=== PATIENT | male | born 1950 | race Caucasian/White ===

== ENCOUNTER 2022-02-03 12:55 | Emergency (ER) | payer OTHER ==
--- NOTE | 2022-02-03 13:56 | RAD REPORT ---
EXAM DESCRIPTION: RAD - Wrist Left 3 View - 02/03/2022 1:33 pm CLINICAL HISTORY: crush injury COMPARISON: No comparisons FINDINGS: No fracture is identified. There is no dislocation or periosteal reaction noted. Significa nt degenerative changes are present at the trapezium first metacarpal articulation. History indicates laceration 1 the 2 inches above the wrist. There is soft tissue thickening over the dorsum of the distal forearm approximately 7 cm from the radiocarpal joint space. Soft tissue of the distal forearm are not fully imaged. Within the field of view no foreign body is seen. IMPRESSION: No acute bone or joint finding identifiable. Thickened soft tissues over the dorsum of the distal forearm, only partially visualized, with no fore ign body identified.
--- NOTE | 2022-02-03 14:27 | RAD REPORT ---
EXAM DESCRIPTION: RAD - Forearm Left - 02/03/2022 2:16 pm CLINICAL HISTORY: trauma, swelling COMPARISON: None. FINDINGS: No fracture is identified. There is no dislocation or periosteal reaction noted. Soft tissue injury is present over the dorsal aspect of the distal forearm. No foreign body seen in t his region. Punctate hyperdensity mid forearm is possibly film artifact. This punctate hyperdensities not believed be part of an acute injury. IMPRESSION: Negative left forearm examination for acute bone finding. Dorsal forearm soft tissue injury with no acutely retained foreign body confirmed.
[2022-02-03 14:53] LABS: Absolute Lymphocytes (CBC) 1.3 K/uL (0.7-4.9); Hematocrit 49.1 % (39.6-49.0); Lymphocytes % 11.7 % (15.3-44.8); MCV 88.3 fL (80-100); RBC Red Blood Cell Count 5.56 M/uL (4.33-5.43)
[2022-02-03 15:17] LABS: Potassium 4.1 mmol/L (3.5-5.1); Troponin High Sensitivity 4.1 pg/mL (<58.9)
[2022-02-03] MEDS ORDERED: LIDOCAINE 1% W/EPI 1:100,000 MDV 20 ML VIAL ONE (17:23)
--- NOTE | 2022-02-03 17:48 | EDPHYS ---
Physician Documentation [facility] Name: Junito Bahena Age: 71 yrs Sex: Male : 1950 Arrival Date: 02/03/2022 Time: 12:59 Bed 17 Private MD: ED Physician Davidson Carter HPI: 02/03 13:20 This 71 yrs old Male presents to ER via Unassigned with complaints of Arm Injury, Hand jmm Injury, Passed Out Prior To Arrival. 13:20 The patient or guardian complains of injury, pain. Onset: The symptoms/episode jmm began/occurred acutely, just prior to arrival. Modifying factors: The symptoms are alleviated by nothing. the symptoms are aggravated by lifting weight. This is a 71 year old malewtih a history of hlp that presents to the ED wth complaints of left forearm pain and difficulty extending his left 3rd and 4th finger. states the patient had a syncopal episodes after the injury. Patient is UTD on tetanus immunizations. . Historical: - Allergies: 13:20 No Known Allergies; ap3 - PMHx: 13:20 Hypothyroidism; Hypercholesterolemia; ap3 - Immunization history:: Client reports receiving the 2nd dose of the Covid vaccine. - Social history:: Smoking status: Patient denies any tobacco usage or history of. Patient uses alcohol, occasionally. ROS: 13:20 Constitutional: Negative for fever, chills, and weight loss, Cardiovascular: Negative jmm for chest pain, palpitations, and edema, Respiratory: Negative for shortness of breath, cough, wheezing, and pleuritic chest pain. 13:20 MS/extremity: Positive for injury or acute deformity, laceration. 13:20 Neuro: Positive for syncope. 13:20 All other systems are negative. Exam: 13:20 Constitutional: This is a well developed, well nourished patient who is awake, alert, jmm and in no acute distress. Head/Face: atraumatic. Eyes: EOMI, no conjunctival erythema appreciated ENT: Moist Mucus Membranes Neck: Trachea midline, Supple Chest/axilla: Normal chest wall appearance and motion. Cardiovascular: Regular rate and rhythm. No edema appreciated Respiratory: Normal respirations, no respiratory distress appreciated Abdomen/GI: Non distended Back: Normal ROM 13:20 Skin: abrasion noted to the left distal forearm. 13:20 Neuro: Orientation: is normal, Mentation: is normal, Memory: is normal. 13:23 Musculoskeletal/extremity: [facility] Vital Signs: 13:16 BP 148 / 88; Pulse 62; Resp 16; Temp 97.3; Pulse Ox 100% ; Weight 97.52 kg; Height 6 ap3 ft. 1 in. (185.42 cm); 14:58 BP 155 / 71; Pulse 55; Resp 18; Pulse Ox 100% on R/A; ph 16:27 BP 146 / 75; Pulse 57; Resp 18; Pulse Ox 100% on R/A; ph 13:16 Body Mass Index 28.37 (97.52 kg, 185.42 cm) ap3 Laceration: 17:46 Wound Repair of 2cm ( 0.8in ) subcutaneous laceration to left arm. Distal jmm neuro/vascular/tendon intact. Anesthesia: Local anesthetic administered with 5 mls of 1% lidocaine w/ Epi. Wound prep: Simple cleansing with betadine by me. Skin closed with 3 4-0 Prolene using simple sutures and sterile technique. Patient tolerated well. MDM: 13:48 Patient medically screened. [facility] 17:47 Data reviewed: vital signs, nurses notes. Counseling: I had a detailed discussion with [facility] the patient and/or guardian regarding: the historical points, exam findings, and any diagnostic results supporting the discharge/admit diagnosis, lab results, radiology results, the need for outpatient follow up, to return to the emergency department if symptoms worsen or persist or if there are any questions or concerns that arise at home. 02/03 13:17 Order name: Basic Metabolic Panel; Complete Time: 15:21 [facility] 02/03 13:17 Order name: CBC with Diff; Complete Time: 14:56 [facility] 02/03 13:17 Order name: Troponin HS; Complete Time: 15:21 [facility] 02/03 13:17 Order name: Wrist Left (3 View) XRAY; Complete Time: 13:57 [facility] 02/03 13:58 Order name: Forearm Left XRAY; Complete Time: 14:30 [facility] 02/03 13:17 Order name: EKG; Complete Time: 13:17 [facility] 02/03 13:17 Order name: Cardiac monitoring; Complete Time: 14:27 [facility] 02/03 13:17 Order name: EKG - Nurse/Tech; Complete Time: 14:27 [facility] 02/03 13:17 Order name: IV Saline Lock; Complete Time: 14:47 [facility] 02/03 13:17 Order name: Labs collected and sent; Complete Time: 14:47 [facility] 02/03 13:17 Order name: O2 Per Protocol; Complete Time: 14:26 [facility] 02/03 13:17 Order name: O2 Sat Monitoring; Complete Time: 14:26 [facility] Administered Medications: 17:50 Drug: Lidocaine (1 %) 20 ml Volume: 20 ml; Route: Infiltration; ph Disposition: 02/04 07:31 Co-signature as Attending Physician, Davidson Carter MD. rn Disposition Summary: 02/03/22 17:48 Discharge Ordered Location: Home [facility] Condition: Stable [facility] Diagnosis - Forearm Laceration jmm - Syncope [facility] Followup: [facility] - With: Anthony Bain MD - When: 2 - 3 days - Reason: Recheck today's complaints, Continuance of care, Re-evaluation by your physician Discharge Instructions: - Discharge Summary Sheet [facility] - Laceration Care, Adult jm - Syncope [facility] Forms: - Medication Reconciliation Form [facility] - Thank You Letter [facility] - Antibiotic Education [facility] - Prescription Opioid Use [facility] Signatures: Dispatcher [employer] EDMS Scott Harvey PA PA [facility] Davidson Carter MD MD rn Hall, Patricia, RN RN ph Prokisch, Amanda, RN RN ap3
--- NOTE | 2022-02-03 17:48 | ER ---
Nurse's Notes [facility] Name: Junito Bahena Age: 71 yrs Sex: Male : 1950 Arrival Date: 02/03/2022 Time: 12:59 Bed 17 Private MD: Diagnosis: Forearm Laceration;Syncope Presentation: 02/03 13:16 Chief complaint: Patient states: broken glass fell and hit his left forearm, which has ap3 led to decreased movement in his left middle and ring fingers. reports that immediately after the patient was hit with the glass, he had a moment where he passed out in his office chair. states that the patients eyes rolled back, and she was unable to get his attention for a few seconds. Coronavirus screen: At this time, the client does not indicate any symptoms associated with coronavirus-19. Ebola Screen: No symptoms or risks identified at this time. Initial Sepsis Screen: Does the patient meet any 2 criteria? No. Patient's initial sepsis screen is negative. Does the patient have a suspected source of infection? No. Patient's initial sepsis screen is negative. Risk Assessment: Do you want to hurt yourself or someone else? Patient reports no desire to harm self or others. Onset of symptoms was February 03, 2022. 13:16 Method Of Arrival: Ambulatory ap3 13:16 Acuity: CHARITY 3 ap3 Triage Assessment: 13:21 General: Appears in no apparent distress. Behavior is calm, cooperative. Pain: ap3 Complains of pain in left arm. Neuro: Level of Consciousness is awake, alert, obeys commands, Oriented to person, place, time, situation, Reports a syncopal episode. Cardiovascular: Patient's skin is warm and dry. Respiratory: Airway is patent Respiratory effort is even, unlabored. Derm: Wound noted dorsal aspect of left forearm. Musculoskeletal: Range of motion: limited in DIP of left ring finger, PIP of left ring finger, MCP of left ring finger, DIP of left middle finger, PIP of left middle finger and MCP of left middle finger. Musculoskeletal: Injury Description: Laceration. Historical: - Allergies: 13:20 No Known Allergies; ap3 - PMHx: 13:20 Hypothyroidism; Hypercholesterolemia; ap3 - Immunization history:: Client reports receiving the 2nd dose of the Covid vaccine. - Social history:: Smoking status: Patient denies any tobacco usage or history of. Patient uses alcohol, occasionally. Screenin:22 Abuse screen: Denies threats or abuse. Nutritional screening: No deficits noted. ap3 Tuberculosis screening: No symptoms or risk factors identified. 14:51 Fall Risk None identified. ph Assessment: 14:47 General: Appears in no apparent distress. comfortable, Behavior is calm, cooperative, ph appropriate for age. Pain: Complains of pain in dorsal aspect of left forearm. Neuro: Level of Consciousness is awake, alert, obeys commands, Oriented to person, place, time, situation. Cardiovascular: Reports lightheadedness, syncope, Denies chest pain, nausea, shortness of breath, vomiting, Capillary refill < 3 seconds in bilateral fingers Patient's skin is warm and dry. Respiratory: Airway is patent Respiratory effort is even, unlabored, Respiratory pattern is regular, symmetrical. GI: No signs and/or symptoms were reported involving the gastrointestinal system. Derm: Skin is healthy with good turgor, Skin is pink, warm \T\ dry. Musculoskeletal: Circulation, motion, and sensation intact. Injury Description: Laceration sustained to dorsal aspect of left forearm is clean, full thickness, 0.5 to 2.5 cm long, not bleeding. 16:26 Reassessment: Patient appears in no apparent distress at this time. Patient and/or ph family updated on plan of care and expected duration. Pain level reassessed. Patient is alert, oriented x 3, equal unlabored respirations, skin warm/dry/pink. Pt reports increased bleeding from injury to L wrist, blood noted to have soaked through gauze dressing, dressing removed and replaced w/ clean pressure dressing. Vital Signs: 13:16 BP 148 / 88; Pulse 62; Resp 16; Temp 97.3; Pulse Ox 100% ; Weight 97.52 kg; Height 6 ap3 ft. 1 in. (185.42 cm); 14:58 BP 155 / 71; Pulse 55; Resp 18; Pulse Ox 100% on R/A; ph 16:27 BP 146 / 75; Pulse 57; Resp 18; Pulse Ox 100% on R/A; ph 13:16 Body Mass Index 28.37 (97.52 kg, 185.42 cm) ap3 ED Course: 12:59 Patient arrived in ED. mr 13:16 Scott Harvey PA is PHCP. jmm 13:16 Davidson Carter MD is Attending Physician. jmm 13:20 Triage completed. ap3 13:22 Arm band placed on right wrist. ap3 13:35 Wrist Left (3 View) XRAY In Process Unspecified. EDMS 14:15 Keturah Rowan, RN is Primary Nurse. ph 14:18 Forearm Left XRAY In Process Unspecified. EDMS 14:46 Inserted saline lock: 20 gauge in right antecubital area, using aseptic technique. oj Blood collected. 14:50 Patient has correct armband on for positive identification. Bed in low position. Call ph light in reach. Side rails up X 1. Pulse ox on. NIBP on. Door closed. Noise minimized. Warm blanket given. 17:47 Anthony Bain MD is Referral Physician. jmm 18:12 No provider procedures requiring assistance completed. IV discontinued, intact, ph bleeding controlled, No redness/swelling at site. Pressure dressing applied. Administered Medications: 17:50 Drug: Lidocaine (1 %) 20 ml Volume: 20 ml; Route: Infiltration; ph Medication: 18:12 VIS not applicable for this client. ph Outcome: 17:48 Discharge ordered by MD. jmm 18:13 Discharged to home ambulatory, with significant other. ph 18:13 Condition: good 18:13 Discharge instructions given to patient, significant other, Instructed on discharge instructions, follow up and referral plans. wound care, Demonstrated understanding of instructions, follow-up care, wound care. 18:13 Patient left the ED. ph Signatures: Dispatcher [employer] EDMS Scott Harvey PA PA jm Beatriz Sandhu mr Keturah Rowan, RN RN Caity Roe RN RN ap3 Daysi Chapa oj
[2022-02-03 18:20] VITALS: TEMP 97.3; O2SAT 100
[2022-02-03 18:23] VITALS: BP 146/75
--- NOTE | 2022-02-04 08:22 | EKG ---
Test Date: 2022-02-03 Test Time: 14:36:07 Visual Artist: BALDOMERO MEASUREMENT RESULTS: Intervals: Rate: 51 WV: 144 QRSD: 94 QT: 440 QTc: 405 [place]: P: 61 WV: 144 QRS: 54 T: 17 INTERPRETIVE STATEMENTS: Sinus bradycardia Possible Left atrial enlargement Borderline ECG Compared to ECG 01/24/1998 16:42:00 Sinus rhythm no longer present Electronically Signed On 02-04-22 08:18:31 CDT by Fili Alarcon
== END 2022-02-03 18:13 | disposition home or self-care (01) ==
LOC: ER 12:55
PROC: 0JQH0ZZ Repair Left Lower Arm Subcutaneous Tissue and Fascia, Open Approach (ICD-10-PCS; principal; 2022-02-03)
DX: S51.812A Laceration without foreign body of left forearm, initial encounter (principal); R55 Syncope and collapse
CPT/HCPCS: 36415; 80048; 84484; 85025; 93005; 99284